=== PATIENT | female | born 1965 | race Caucasian/White ===

== ENCOUNTER 2016-11-16 08:48 | Emergency (ER) | payer OTHER ==
[~2016-11-16] VITALS: Ht 170.2 cm; Wt 82.1 kg
[~2016-11-16 08:48] MED LIST: ESCITALOPRAM10 MG PO; PROTONIX 40MG T40 MG PO; VOLTAREN50 MG PO
--- NOTE | 2016-11-16 09:14 | ED UPPER/LOWER EXTREMITY COMPL ---
History of Present Illness General Chief Complaint: Lower Extremity Problems Stated Complaint: LFT KNEE PAIN NO KNOWN INJURY Source: patient Exam Limitations: no limitations Vital Signs & Intake/Output Vital Signs & Intake/Output Vital Signs Date Time Temp Pulse Resp B/P Pulse O2 O2 Flow FiO2 Ox Delivery Rate 11/16 1125 97.6 88 18 116/75 98 Room Air 11/16 0854 98.2 76 18 133/83 98 Room Air Allergies Coded Allergies: NO KNOWN ALLERGIES (09/03/15) Reconcile Medications Bupropion HCl (Wellbutrin Sr) (Unknown Strength) TABLET.ER (Unknown Dose) PO QAM DEPRESSION (Reported) Diclofenac Sodium (Voltaren) 50 MG ECT 1 TAB PO BID PRN PAIN Escitalopram Oxalate 10 MG TAB 1 TAB PO DAILY DEPRESSION (Reported) Hydrocodone/Acetaminophen (Medora 5-325 Tablet) 5 MG-325 MG TABLET 1-2 TAB PO Q4-6 PRN PRN pain Pantoprazole Sodium (Protonix) 40 MG TAB 40 MG PO DAILY GERD (Reported) Triage Note: 51 Y/O FEMALE C/O L KNEE PAIN X APPROX 1 WEEK; DENIES RECENT FALLS OR INJURY. STATES SHE HAS BEEN TAKING ADVIL ARTHRITIS WITH NO RELIEF. AMBULATORY WITH STEADY GAIT INTO/OUT OF TRIAGE. DECLINES OFFER OF W/C OR MEDS. Triage Nurses Notes Reviewed? yes Onset: Gradual Duration: week(s): (1) Timing: recent history Severity: moderate Severity Numbers: 8 Pain/Injury Location: Left: Knee. Method of Injury: unknown Modifying Factors: Improves With: immobilization. Worsens With: movement. HPI: Patient is a 51-year-old female presenting to the emergency department with chief complaint of left knee pain it's been constant for the past one week. Pain is sharp and stabbing and worse with weightbearing and range of motion. Denies any specific injury. She does report that over the past several months she has gained a significant amount of weight and she does like to walk. Walking makes the pain worse. Denies any falls or trauma. History of similar pain in the right knee. Has been using Tylenol and Advil with little snow relief. Denies any redness. No fevers or chills. Denies recent travel. No calf pain. No numbness or tingling. (KAYLEEN COREA,RIA) Past History Travel History Traveled to [place] past 21 day No Medical History Any Pertinent Medical History? 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 No (RIA GAMEZ) Review of Systems Review of Systems Constitutional: Reports: no symptoms. Comments Review of systems: See HPI, All other systems negative. Constitutional, no chills fever or weight loss HEENT: No visual changes no sore throat no congestion Cardiovascular: No chest pain ,palpitation , orthopnea or ankle swelling Skin, no jaundice no rashes Respiratory: No dyspnea cough sputum GI: No nausea no vomiting Muscle skeletal: no back pain, no neck pain, Neurologic: No numbness no confusion no petty Psych: No stress anxiety Immunology: No splenectomy or history of AIDS (RIA GAMEZ) Physical Exam Physical Exam General Appearance: well developed/nourished, no apparent distress, alert, awake , comfortable Comments: Well-developed well-nourished person in no acute distress HEENT:. Pupils equally round and reactive to light and accommodation. Nose is atraumatic. Neck: Normal inspection Back: Nontender Cardiovascular: normal JVP Respiratory: No respiratory distress. Extremity: Minimal edema appreciated over the left patella, no erythema, no warmth to palpation over this area. Tender to palpation over the lateral aspect of the left patella. Negative anterior and posterior drawer test on the left lower extremity. No calf pain to palpation bilaterally. Pedal pulses are 2+ bilaterally. Full range of motion of bilateral ankles, feet. Limited range of motion with left knee secondary to pain with knee flexion. Neuro: Alert oriented x3, motor sensory normal Skin: No appreciable rash on exposed skin, skin is warm and dry. Psych: Mood and affect is normal, memory and judgment is normal. (RIA GAMEZ) Progress Differential Diagnosis: contusion, dislocation, DVT, fracture, gout, septic arthritis, sprain, tendon injury Plan of Care: Orders Procedure Date/time Status US-UNILATERAL VENOUS DOPPLER 11/16 1013 Active Diagnostic Imaging: Viewed by Me: Radiology Read. Discussed w/RAD: Radiology Read. Radiology Impression: PATIENT: NATALIE PENALOZA PRESENT AGE: 51 PATIENT ACCOUNT NO: [id number] : 64 LOCATION: [facility] ORDERING PHYSICIAN: RIA COREA SERVICE DATE: 11/16/16 EXAM TYPE: RAD - XRY-KNEE COMPLETE LEFT EXAMINATION: XR KNEE, LEFT CLINICAL INFORMATION: Pain and swelling while walking. COMPARISON: None. TECHNIQUE: 4 views. FINDINGS: There is no visible acute fracture, dislocation or soft tissue abnormality. No bony erosive changes are loose bodies. There is no suprapatellar joint effusion. There is soft tissue calcifications most likely from varicose veins along the medial calf. There are several noncalcified varicose veins in medial calf region. IMPRESSION: No acute fracture or dislocation. Significant varicose veins in the left medial calf with a segment of varicose vein appears calcified., PATIENT: NATALIE PENALOZA PRESENT AGE: 51 PATIENT ACCOUNT NO: [id number] : 64 LOCATION: [facility] ORDERING PHYSICIAN: RIA COREA SERVICE DATE: 11/16/16 EXAM TYPE: US - US- UNILATERAL VENOUS DOPPLER EXAMINATION: US TRIPLEX LOWER EXTREMITY, LEFT CLINICAL INFORMATION: Left leg pain. COMPARISON: None. TECHNIQUE: Color-flow triplex imaging with spectral analysis and compression Doppler were performed on the left lower extremity. FINDINGS: The left common femoral vein is compressible and exhibits a normal phasic waveform; this suggests that the iliac veins are widely patent above. Within the proximal thigh, the visualized profunda femoris vein is patent and the examined greater saphenous vein and saphenofemoral junction are normal. Superficial femoral vein is patent in the proximal, mid and distal thigh. Popliteal vein appears normal to the level of the trifurcation, and the visualized calf veins are patent. No evidence of Nieves's cyst. IMPRESSION: No evidence of deep vein thrombosis in the left lower extremity. Comments: PT DECLINED PAIN MEDS ON ARRIVAL. Patient was informed of ultrasound and x-ray results. She'll follow-up with orthopedics. Given Vicodin for severe pain. She'll continue Advil over-the- counter as well. Patient nontoxic. (KAYLEEN COREA,RIA) Departure Departure Time of Disposition: 940 Disposition: HOME OR SELF CARE Condition: Stable Clinical Impression Primary Impression: Knee pain Qualifiers: Laterality: left Chronicity: acute Qualified Code: M25.562 - Pain in left knee Referrals: SILVANO TORRES,STALIN (PCP/Family) REGGIE TORRES,SIGIFREDO Delatorre Referred to [facility] as new patient No Additional Instructions: Follow-up with orthopedics call to make appointment. You may need an MRI of your knee. Rest ice and elevate affected extremity. Wear knee brace for support. Take Vicodin as prescribed for severe pain otherwise use over-the- counter ibuprofen as directed. Departure Forms: Customer Survey General Discharge Information Prescriptions: Current Visit Scripts Hydrocodone/Acetaminophen (Medora 5-325 Tablet) 1-2 TAB PO Q4-6 PRN PRN pain #10 TAB (RIA GAMEZ) PA/SHIPPING AND RECEIVING WEIGHER Co-Sign Statement Statement: ED Attending supervision documentation- [] I saw and evaluated the patient. I have also reviewed all the pertinent lab results and diagnostic results. I agree with the findings and the plan of care as documented in the PA's/SHIPPING AND RECEIVING WEIGHER's documentation. x I have reviewed the ED Record and agree with the PA's/SHIPPING AND RECEIVING WEIGHER's documentation. [] Additions or exceptions (if any) to the PAs/SHIPPING AND RECEIVING WEIGHER's note and plan are summarized below: [] (JASON TORRES,RYNE)
[2016-11-16] MEDS ORDERED: WELLBUTRIN SR100 M2 PO (09:21)
[2016-11-16] MEDS ORDERED: NORCO 5-325 TA1 EACH PO (09:43)
--- NOTE | 2016-11-16 10:06 | RADIOLOGY REPORT ---
EXAMINATION: XR KNEE, LEFT CLINICAL INFORMATION: Pain and swelling while walking. COMPARISON: None. TECHNIQUE: 4 views. FINDINGS: There is no visible acute fracture, dislocation or soft tissue abnormality. No bony erosive changes are loose bodies. There is no suprapatellar joint effusion. There is soft tissue calcifications most likely from varicose veins along the medial calf. There are several noncalcified varicose veins in medial calf region. IMPRESSION: No acute fracture or dislocation. Significant varicose veins in the left medial calf with a segment of varicose vein appears calcified.
[2016-11-16 11:25] VITALS: BP 116/75
--- NOTE | 2016-11-16 11:51 | ULTRASOUND REPORT ---
EXAMINATION: US TRIPLEX LOWER EXTREMITY, LEFT CLINICAL INFORMATION: Left leg pain. COMPARISON: None. TECHNIQUE: Color-flow triplex imaging with spectral analysis and compression Doppler were performed on the left lower extremity. FINDINGS: The left common femoral vein is compressible and exhibits a normal phasic waveform; this suggests that the iliac veins are widely patent above. Within the proximal thigh, the visualized profunda femoris vein is patent and the examined greater saphenous vein and saphenofemoral junction are normal. Superficial femoral vein is patent in the proximal, mid and distal thigh. Popliteal vein appears normal to the level of the trifurcation, and the visualized calf veins are patent. No evidence of Nieves's cyst. IMPRESSION: No evidence of deep vein thrombosis in the left lower extremity.
== END 2016-11-16 12:06 ==
LOC: ERH 08:48
DX: M25.562 Pain in left knee (principal)
CPT/HCPCS: 73562-LT